=== PATIENT | male | born 1950 | race Caucasian/White ===

== ENCOUNTER → 2020-04-17 08:48 | Outpatient (CLI) | payer MEDICARE, SELFPAY ==
--- NOTE | 2020-04-17 08:52 | AAAS_ITS ---
Reason For Study: Screening Aorta Measurements Aorta Doppler Measurements Proximal aorta measures1.71 x 1.71cm. in cross- Peak systolic flow velocities within the proximal sectional axis. aorta measure 106.7 cm/sec. Proximal aorta measures1.74cm. in longitudinal Peak systolic flow velocities within the mid aorta axis. measure 111 cm/sec. Mid aorta measures1.80 x 1.80cm. in cross- Peak systolic flow velocities within the distal sectional axis. aorta measure 128.6 cm/sec. Mid aorta measures1.82cm. in longitudinal axis. Distal aorta measures1.37 x 1.35cm. in cross- sectional axis. Distal aorta measures1.37cm. in longitudinal axis. Left Iliac Artery Left iliac artery measures 1.19 x 1.17 cm. in the cross-sectional axis. Left iliac artery measures 1.15 cm. in the longitudinal axis. Peak systolic velocity in the left iliac artery measures 104.4 cm/sec. Right Iliac Artery Right iliac artery measures 1.33 x 1.33 cm. in the cross-sectional axis. Right iliac artery measures 1.31 cm. in the longitudinal axis. Peak systolic velocity in the right iliac artery measures 108.8 cm/sec. Procedure Aorta IVC Iliac vasculature or bypass grafts 31613. Exam performed in department. Interpretation Summary The dimensions of the intra-abdominal aorta are normal, without evidence of aneurysmal dilatation. The iliac arteries are also normal in size bilaterally. The intra-abdominal aorta and iliac arteries appear patent, demonstrating normal, pulsatile arterial flow and normal peak systolic velocities. Ordering Physician: Farooq Begum Referring Physician: Farooq Begum Performed By: Shanelle Velez RVT
== END ==
PROVIDERS: PCP Student in an Organized Health Care Education/Training Program; Referring Provider Student in an Organized Health Care Education/Training Program; Visit Provider Student in an Organized Health Care Education/Training Program
DX: Z13.6 Encounter for screening for cardiovascular disorders (principal); Z87.891 Personal history of nicotine dependence
CPT/HCPCS: 76706